=== PATIENT | female | born 1965 | race Caucasian/White ===

== ENCOUNTER → 2016-08-01 | Outpatient (CLI) | payer OTHER ==
[~2016-08-01] MED LIST: ADVAIR; EC NAPROSYN500 MG PO; EC-NAPROSYN500 MG PO; FLEXERIL 1010 MG/TAB PO; FLEXERIL5 MG PO; FLONASE NASAL S16 GM IH; MOTRIN 400400 MG/TAB PO; NEURONTIN300 MG/CAP PO; NORCO 325 MG-7.1 TAB PO; PEPCID 20MG TAB20 MG PO; PREDNISONE20 MG PO; PRILOSEC 20MG20 MG PO; PROAIR HFA0.09 MG/AC IH; QVAR0.04 MG/AC IH; ROXICODONE 55 MG/TAB PO; TUSS PO; [UNRECOGNIZED DRUG - REMARK]
== END ==
LOC: COL.RAD 11:12
DX: R14.0 Abdominal distension (gaseous) (principal)

== ENCOUNTER → 2016-09-03 | Outpatient (CLI) | payer OTHER | LOC: ZLAB.FHCC 11:56 | DX: Z01.89 Encounter for other specified special examinations (principal) ==

== ENCOUNTER → 2016-10-07 | Outpatient (CLI) | payer OTHER | LOC: COL.RAD 08:30 | DX: K75.81 Nonalcoholic steatohepatitis (NASH) (principal); R74.8 Abnormal levels of other serum enzymes; R18.8 Other ascites; R14.0 Abdominal distension (gaseous) | CPT/HCPCS: Q9967 ==

== ENCOUNTER → 2017-06-18 | Outpatient (CLI) | payer OTHER | LOC: COL.RAD 09:40 | DX: Z01.89 Encounter for other specified special examinations (principal) ==

== ENCOUNTER → 2017-07-03 | Outpatient (CLI) | payer OTHER | LOC: COL.RAD 10:02 | DX: Z02.71 Encounter for disability determination (principal); M51.36 Other intervertebral disc degeneration, lumbar region; M25.561 Pain in right knee ==

== ENCOUNTER → 2017-10-29 | Outpatient (CLI) | payer OTHER | LOC: COL.PUL 12:40 | DX: Z02.71 Encounter for disability determination (principal); J98.4 Other disorders of lung ==

== ENCOUNTER → 2017-11-14 | Outpatient (CLI) | payer OTHER | LOC: COL.RAD 09:25 | DX: Z02.71 Encounter for disability determination (principal); R22.31 Localized swelling, mass and lump, right upper limb; Z96.698 Presence of other orthopedic joint implants ==

== ENCOUNTER 2018-03-26 15:08 | Emergency (ER) | payer SELFPAY ==
[~2018-03-26] VITALS: Ht 172.7 cm; Wt 53.6 kg
[~2018-03-26 15:08] MED LIST changes: +NORCO 325 MG-51 TAB PO
[2018-03-26 15:20] VITALS: TEMP 99.2
[2018-03-26 16:10] VITALS: BP 126/78; PULSE 94
== END 2018-03-26 16:10 | disposition home or self-care (01) ==
LOC: COL.ER 15:08
DX: S02.2XXA Fracture of nasal bones, initial encounter for closed fracture (principal); S00.83XA Contusion of other part of head, initial encounter; W19.XXXA Unspecified fall, initial encounter

== ENCOUNTER 2018-04-01 11:01 | Emergency (ER) | payer SELFPAY ==
[~2018-04-01] VITALS: Ht 172.7 cm; Wt 53.6 kg
[2018-04-01 11:05] VITALS: BP 137/77; PULSE 105; TEMP 98.5
== END 2018-04-01 11:30 | disposition home or self-care (01) ==
LOC: COL.ER 11:01
DX: S00.83XD Contusion of other part of head, subsequent encounter (principal); H53.8 Other visual disturbances; S02.2XXD Fracture of nasal bones, subsequent encounter for fracture with routine healing; Z79.891 Long term (current) use of opiate analgesic; W18.30XD Fall on same level, unspecified, subsequent encounter

== ENCOUNTER 2018-06-21 19:21 | Emergency (ER) | payer SELFPAY ==
[~2018-06-21] VITALS: Ht 172.7 cm; Wt 50.0 kg
[2018-06-21 19:27] VITALS: TEMP 97.1
[2018-06-21] MEDS ORDERED: RT ADVAIR 228 DISKUS (19:38)
[2018-06-21 19:40] LABS: BASO # 0.1 (0.0-0.2); BASO % 0.8 % (0.0-2.0); EOS # 0.1 (0.0-0.7); EOS % 1.8 % (0-4.0); GRAN # 3.9 (1.4-6.5); GRAN % 49.9 % (42.2-75.2); HEMATOCRIT 39.8 % (37.0-47.0); HEMOGLOBIN 14.4 g/dl (12.5-16.0); LYMPH # 3.1 (1.2-3.4); LYMPH % 39.8 % (20.0-51.0); MEAN CELL VOLUME 91 fl (80.0-100.0); MEAN CORPUSCULAR HEMOGLOBIN 33 pg (27.0-31.0); MEAN CORPUSCULAR HGB CONC 36 g/dl (33.0-37.0); MEAN PLATELET VOLUME 9.3 fl (7.4-10.4); MONO # 0.6 (0.1-0.6); MONO % 7.4 % (1.7-9.3); PLATELET COUNT 170 K/mm3 (130-400); REDCELL DISTRIBUTION WIDTH-CV 13.2 % (11.5-14.5)
[2018-06-21] MEDS ORDERED: TRILEPTAL 300M300 MG PO (19:40)
[2018-06-21] MEDS ORDERED: PRINIVIL10 MG PO (19:40)
[2018-06-21 19:49] LABS: INR 0.9 (0.8-3.0); PROTHROMBIN TIME 10.1 SECONDS (9.7-12.8)
[2018-06-21 19:54] LABS: ALANINE AMINOTRANSFERASE 64 U/L (9-52); ALBUMIN 4.1 gm/dL (3.5-5.0); ALKALINE PHOSPHATASE 95 U/L (50-136); ANION GAP 9 mmol/L (7-16); AST,SGOT 127 U/L (15-37); BILIRUBIN,TOTAL 0.4 mg/dL (0.0-1.0); BLOOD UREA NITROGEN 7 mg/dL (7-17); CARBON DIOXIDE 24 mmol/L (22-30); CHLORIDE 108 mmol/L (98-107); CREATININE, serum 0.84 mg/dL (0.52-1.25); GLUCOSE 98 mg/dL (74-106); POTASSIUM 3.9 mmol/L (3.4-5.0); SODIUM 142 mmol/L (137-145); TOTAL PROTEIN 7.5 gm/dL (6.4-8.2)
[2018-06-21 20:11] LABS: TROPONIN-I < 0.012 ng/mL (0.000-0.034)
[2018-06-21 23:00] VITALS: BP 115/87; PULSE 84
== END 2018-06-21 23:25 | disposition home or self-care (01) ==
LOC: COL.ER 19:21
PROVIDERS: Emergency Medicine
DX: R07.89 Other chest pain (principal); I10 Essential (primary) hypertension; I25.10 Atherosclerotic heart disease of native coronary artery without angina pectoris; J44.9 Chronic obstructive pulmonary disease, unspecified; F17.210 Nicotine dependence, cigarettes, uncomplicated; Z98.890 Other specified postprocedural states; Z86.73 Personal history of transient ischemic attack (TIA), and cerebral infarction without residual deficits
CPT/HCPCS: J3010

== ENCOUNTER 2018-08-12 16:22 | Emergency (ER) | payer OTHER ==
[~2018-08-12] VITALS: Ht 172.7 cm; Wt 50.0 kg
[~2018-08-12 16:22] MED LIST changes: +ALDACTONE 25MG25 M1 PO; +ASPIRIN 81M81 MG/TA2 PO; +COREG 3.123.125 MG/T PO; +LIPITOR 40MG TA40 MG PO; +NORVASC 5MG5 MG/TAB PO; +PRINIVIL10 MG PO; +RT ADVAIR 228 DISKUS; +TOPAMAX50 MG PO; +TRILEPTAL 300M300 MG PO; +VASOTEC 2.2.5 MG/TAB PO
[2018-08-12 16:24] VITALS: TEMP 97.4
[2018-08-12 16:45] LABS: BASO # 0.1 (0.0-0.2); BASO % 1.4 % (0.0-2.0); EOS # 0.1 (0.0-0.7); EOS % 2.2 % (0-4.0); GRAN # 2.9 (1.4-6.5); GRAN % 57.9 % (42.2-75.2); HEMATOCRIT 36.1 % (37.0-47.0); HEMOGLOBIN 12.9 g/dl (12.5-16.0); LYMPH # 1.5 (1.2-3.4); LYMPH % 30.2 % (20.0-51.0); MEAN CELL VOLUME 93 fl (80.0-100.0); MEAN CORPUSCULAR HEMOGLOBIN 33 pg (27.0-31.0); MEAN CORPUSCULAR HGB CONC 36 g/dl (33.0-37.0); MEAN PLATELET VOLUME 9.2 fl (7.4-10.4); MONO # 0.4 (0.1-0.6); MONO % 8.1 % (1.7-9.3); PLATELET COUNT 139 K/mm3 (130-400); RED BLOOD COUNT 3.89 M/mm3 (4.10-5.30); REDCELL DISTRIBUTION WIDTH-CV 14.9 % (11.5-14.5)
[2018-08-12 17:00] LABS: ALANINE AMINOTRANSFERASE 180 U/L (9-52); ALBUMIN 4.1 gm/dL (3.5-5.0); ALCOHOL(ethanol),MEDICAL 278 mg/dL; ALKALINE PHOSPHATASE 94 U/L (50-136); ANION GAP 11 mmol/L (7-16); AST,SGOT 536 U/L (15-37); BILIRUBIN,TOTAL 0.3 mg/dL (0.0-1.0); BLOOD UREA NITROGEN 17 mg/dL (7-17); CALCIUM 8.8 mg/dL (8.4-10.2); CARBON DIOXIDE 22 mmol/L (22-30); CHLORIDE 111 mmol/L (98-107); CREATININE, serum 0.71 mg/dL (0.52-1.25); GLUCOSE 90 mg/dL (74-106); LIPASE 396 U/L (23-300); MAGNESIUM 1.7 mg/dL (1.6-2.3); PHOSPHOROUS 5.2 mg/dL (2.5-4.5); POTASSIUM 4.1 mmol/L (3.4-5.0); SODIUM 143 mmol/L (137-145); TOTAL PROTEIN 7.2 gm/dL (6.4-8.2)
[2018-08-12 17:03] LABS: C-REACTIVE PROTEIN < 0.5 mg/dL (0.0-0.9)
[2018-08-12 17:12] LABS: TROPONIN-I < 0.012 ng/mL (0.000-0.035)
[2018-08-12 19:05] VITALS: BP 103/76; PULSE 105
== END 2018-08-12 19:05 | disposition home or self-care (01) ==
LOC: COL.ER 16:22
PROVIDERS: Emergency Medicine
DX: S00.83XA Contusion of other part of head, initial encounter (principal); R07.89 Other chest pain; F10.129 Alcohol abuse with intoxication, unspecified; R91.1 Solitary pulmonary nodule; F17.210 Nicotine dependence, cigarettes, uncomplicated; G40.909 Epilepsy, unspecified, not intractable, without status epilepticus; I10 Essential (primary) hypertension; Z95.5 Presence of coronary angioplasty implant and graft; W19.XXXA Unspecified fall, initial encounter; Y90.8 Blood alcohol level of 240 mg/100 ml or more; Z79.51 Long term (current) use of inhaled steroids; Z79.82 Long term (current) use of aspirin
CPT/HCPCS: J2060; Q9967

== ENCOUNTER 2018-09-28 10:13 | Emergency (ER) | payer OTHER ==
[~2018-09-28] VITALS: Ht 172.7 cm; Wt 47.4 kg
[2018-09-28 10:21] VITALS: TEMP 97.7
[2018-09-28] MEDS ORDERED: FLEXERIL 1010 MG/TAB PO (10:38)
[2018-09-28 10:51] LABS: HEMATOCRIT 39.9 % (37.0-47.0); HEMOGLOBIN 14.2 g/dl (12.5-16.0); MEAN CELL VOLUME 94 fl (80.0-100.0); MEAN CORPUSCULAR HEMOGLOBIN 34 pg (27.0-31.0); MEAN CORPUSCULAR HGB CONC 36 g/dl (33.0-37.0); MEAN PLATELET VOLUME 9.9 fl (7.4-10.4); PLATELET COUNT 175 K/mm3 (130-400); RED BLOOD COUNT 4.24 M/mm3 (4.10-5.30); REDCELL DISTRIBUTION WIDTH-CV 14.3 % (11.5-14.5)
[2018-09-28] MEDS ORDERED: NORVASC 5MG5 MG/TAB PO (10:51)
[2018-09-28 10:59] LABS: BLOOD UREA NITROGEN 13 mg/dL (7-17); CREATININE, serum 0.76 mg/dL (0.52-1.25); GLUCOSE 128 mg/dL (74-106)
[2018-09-28 11:00] LABS: ALANINE AMINOTRANSFERASE 34 U/L (9-52); ALBUMIN 4.1 gm/dL (3.5-5.0); ALKALINE PHOSPHATASE 92 U/L (50-136); ANION GAP 12 mmol/L (7-16); AST,SGOT 102 U/L (15-37); BILIRUBIN,TOTAL 0.4 mg/dL (0.0-1.0); CALCIUM 8.9 mg/dL (8.4-10.2); CARBON DIOXIDE 25 mmol/L (22-30); CHLORIDE 101 mmol/L (98-107); CREATINE KINASE 56 U/L (30-135); POTASSIUM 3.7 mmol/L (3.4-5.0); SODIUM 138 mmol/L (137-145); TOTAL PROTEIN 7.5 gm/dL (6.4-8.2)
[2018-09-28 11:01] LABS: INR 0.9 (0.8-3.0)
[2018-09-28 11:05] LABS: BAND 3 % (0-10); EOSINOPHIL 4 % (0-4); LYMPHOCYTE 31 % (20.0-51.0); NEUTROPHILS 60 % (42.0-75.2); PLATELET ESTIMATE NORMAL (NORMAL); TARGET CELLS 1+
[2018-09-28 11:23] LABS: TROPONIN-I < 0.012 ng/mL (0.000-0.035)
[2018-09-28 12:55] VITALS: BP 112/73; PULSE 86
== END 2018-09-28 12:56 | disposition home or self-care (01) ==
LOC: COL.ER 10:13
PROVIDERS: Emergency Medicine
DX: R51 Headache (principal); J44.9 Chronic obstructive pulmonary disease, unspecified; F17.210 Nicotine dependence, cigarettes, uncomplicated; Z86.73 Personal history of transient ischemic attack (TIA), and cerebral infarction without residual deficits; Z79.51 Long term (current) use of inhaled steroids
CPT/HCPCS: J1200; J2765; J7030

== ENCOUNTER 2018-10-06 21:17 | Emergency (ER) | payer OTHER ==
[~2018-10-06] VITALS: Ht 172.7 cm; Wt 50.0 kg
[2018-10-06 21:21] VITALS: TEMP 98
[2018-10-06 22:25] LABS: BASO # 0.1 (0.0-0.2); BASO % 0.9 % (0.0-2.0); EOS # 0.1 (0.0-0.7); EOS % 0.9 % (0-4.0); GRAN % 62.9 % (42.2-75.2); HEMOGLOBIN 11.1 g/dl (12.5-16.0); LYMPH # 1.7 (1.2-3.4); LYMPH % 27.3 % (20.0-51.0); MEAN CELL VOLUME 94 fl (80.0-100.0); MEAN CORPUSCULAR HEMOGLOBIN 34 pg (27.0-31.0); MEAN CORPUSCULAR HGB CONC 36 g/dl (33.0-37.0); MONO # 0.5 (0.1-0.6); MONO % 7.7 % (1.7-9.3); PLATELET COUNT 155 K/mm3 (130-400); RED BLOOD COUNT 3.29 M/mm3 (4.10-5.30); REDCELL DISTRIBUTION WIDTH-CV 14.1 % (11.5-14.5)
[2018-10-06 22:30] LABS: INR 0.9 (0.8-3.0); PROTHROMBIN TIME 10.2 SECONDS (9.7-12.8)
[2018-10-06 22:33] LABS: PARTIAL THROMBOPLASTIN TIME 28.5 SECONDS (26.0-37.0)
[2018-10-06 22:36] LABS: ALANINE AMINOTRANSFERASE 52 U/L (9-52); ALBUMIN 3.1 gm/dL (3.5-5.0); ALKALINE PHOSPHATASE 84 U/L (50-136); ANION GAP 14 mmol/L (7-16); AST,SGOT 125 U/L (15-37); BILIRUBIN,TOTAL 0.2 mg/dL (0.0-1.0); BLOOD UREA NITROGEN 20 mg/dL (7-17); CALCIUM 7.4 mg/dL (8.4-10.2); CHLORIDE 108 mmol/L (98-107); CREATININE, serum 0.87 mg/dL (0.52-1.25); GLUCOSE 66 mg/dL (74-106); SODIUM 135 mmol/L (137-145); TOTAL PROTEIN 5.8 gm/dL (6.4-8.2)
[2018-10-06 22:50] LABS: CARBON DIOXIDE 14 mmol/L (22-30); TROPONIN-I < 0.012 ng/mL (0.000-0.035)
[2018-10-06 23:56] VITALS: BP 119/74; PULSE 86
== END 2018-10-07 00:11 | disposition home or self-care (01) ==
LOC: COL.ER 21:17
PROVIDERS: Family Medicine
DX: R07.89 Other chest pain (principal)
CPT/HCPCS: J1885; J7030; Q9967

== ENCOUNTER → 2018-12-01 | Outpatient (CLI) | payer OTHER | LOC: COL.RAD 11:16 | DX: J43.9 Emphysema, unspecified (principal); F17.210 Nicotine dependence, cigarettes, uncomplicated; J98.4 Other disorders of lung; K76.0 Fatty (change of) liver, not elsewhere classified; J98.11 Atelectasis | CPT/HCPCS: Q9967 ==

== ENCOUNTER 2018-12-12 16:37 | Emergency (ER) | payer OTHER ==
[~2018-12-12] VITALS: Ht 172.7 cm; Wt 45.9 kg
[2018-12-12 16:43] VITALS: TEMP 97.6
[2018-12-12 17:23] LABS: BASO # 0.1 (0.0-0.2); BASO % 1.2 % (0.0-2.0); EOS # 0.2 (0.0-0.7); EOS % 3.1 % (0-4.0); GRAN # 3.4 (1.4-6.5); GRAN % 66.2 % (42.2-75.2); HEMOGLOBIN 12.2 g/dl (12.5-16.0); LYMPH # 1.1 (1.2-3.4); MEAN CELL VOLUME 95 fl (80.0-100.0); MEAN CORPUSCULAR HEMOGLOBIN 35 pg (27.0-31.0); MEAN CORPUSCULAR HGB CONC 37 g/dl (33.0-37.0); MEAN PLATELET VOLUME 9.9 fl (7.4-10.4); MONO # 0.4 (0.1-0.6); MONO % 6.9 % (1.7-9.3); PLATELET COUNT 120 K/mm3 (130-400); RED BLOOD COUNT 3.49 M/mm3 (4.10-5.30); REDCELL DISTRIBUTION WIDTH-CV 16.2 % (11.5-14.5)
[2018-12-12 17:32] LABS: HEMATOCRIT 33.1 % (37.0-47.0)
[2018-12-12 17:33] LABS: ALBUMIN 3.6 gm/dL (3.5-5.0); BILIRUBIN,TOTAL 0.9 mg/dL (0.0-1.0); CALCIUM 8.3 mg/dL (8.4-10.2); CREATININE, serum 0.79 (0.52-1.25); POTASSIUM 3.9 mmol/L (3.4-5.0); TOTAL PROTEIN 6.8 gm/dL (6.4-8.2)
[2018-12-12 17:49] LABS: PROLACTIN 47.3 ng/mL (3.0-18.6)
[2018-12-12 18:27] LABS: COLLECTION METHOD CLEAN CATCH
[2018-12-12 18:33] LABS: MUCOUS Present /lpf; PH 6 (5-8); SQUAMOUS EPITHELIAL 0-2 /hpf; URINE APPEARANCE Clear; URINE BACTERIA None Seen /hpf; URINE BILIRUBIN Negative (NEGATIVE); URINE BLOOD Negative (NEGATIVE); URINE COLOR Yellow; URINE GLUCOSE Negative (NEGATIVE); URINE KETONE Negative (NEGATIVE); URINE LEUKOCYTE ESTERASE Negative (NEGATIVE); URINE NITRATE Negative (NEGATIVE); URINE PROTEIN(semi-quant) Negative (NEGATIVE); URINE RBC 0-2 /hpf; URINE UROBILINOGEN Negative (NEGATIVE)
[2018-12-12] MEDS ORDERED: VASOTEC 2.2.5 MG/TAB PO (19:00)
[2018-12-12 19:17] LABS: INR 0.9 (0.8-3.0); PROTHROMBIN TIME 10.6 SECONDS (9.7-12.8)
[2018-12-12] MEDS ORDERED: NORCO 325 MG-51 TAB PO (19:37)
[2018-12-12] MEDS ORDERED: TOPAMAX 25MG25 M1 PO (19:38)
[2018-12-12 20:22] VITALS: BP 128/93; PULSE 87
== END 2018-12-12 20:24 | disposition home or self-care (01) ==
LOC: COL.ER 16:37
PROVIDERS: Emergency Medicine
DX: S52.501A Unspecified fracture of the lower end of right radius, initial encounter for closed fracture (principal); G40.909 Epilepsy, unspecified, not intractable, without status epilepticus; G43.909 Migraine, unspecified, not intractable, without status migrainosus; F17.210 Nicotine dependence, cigarettes, uncomplicated; I50.9 Heart failure, unspecified; I10 Essential (primary) hypertension; F10.129 Alcohol abuse with intoxication, unspecified; Y90.8 Blood alcohol level of 240 mg/100 ml or more; Z98.890 Other specified postprocedural states; Z86.73 Personal history of transient ischemic attack (TIA), and cerebral infarction without residual deficits; W19.XXXA Unspecified fall, initial encounter
CPT/HCPCS: J0780; J1200; J7030; Q4050

== ENCOUNTER 2019-03-12 12:33 | Emergency (ER) | payer SELFPAY ==
[~2019-03-12] VITALS: Ht 172.7 cm; Wt 50.0 kg
[~2019-03-12 12:33] MED LIST changes: +TOPAMAX 25MG25 M1 PO
[2019-03-12 13:01] VITALS: TEMP 98.3
[2019-03-12] MEDS ORDERED: PREDNISONE20 MG PO (14:58)
[2019-03-12] MEDS ORDERED: COZAAR 25MG25 MG/TAB PO (14:58)
[2019-03-12 15:16] VITALS: BP 148/97; PULSE 86
== END 2019-03-12 15:17 | disposition home or self-care (01) ==
LOC: COL.ER 12:33
DX: T78.3XXA Angioneurotic edema, initial encounter (principal); I10 Essential (primary) hypertension; I25.10 Atherosclerotic heart disease of native coronary artery without angina pectoris; J45.909 Unspecified asthma, uncomplicated; G40.909 Epilepsy, unspecified, not intractable, without status epilepticus; F17.210 Nicotine dependence, cigarettes, uncomplicated
CPT/HCPCS: J7512

== ENCOUNTER 2019-03-26 17:10 | Emergency (ER) | payer SELFPAY ==
[~2019-03-26] VITALS: Ht 172.7 cm; Wt 50.0 kg
[~2019-03-26 17:10] MED LIST changes: +COZAAR 25MG25 MG/TAB PO
[2019-03-26 17:13] VITALS: BP 164/107; PULSE 87; TEMP 97.4
[2019-03-26 18:25] LABS: BASO # 0.1 (0.0-0.2); BASO % 1.1 % (0.0-2.0); EOS # 0.1 (0.0-0.7); EOS % 2.5 % (0-4.0); GRAN # 3.1 (1.4-6.5); GRAN % 55.5 % (42.2-75.2); HEMOGLOBIN 12.5 g/dl (12.5-16.0); LYMPH # 1.8 (1.2-3.4); LYMPH % 31.1 % (20.0-51.0); MEAN CELL VOLUME 95 fl (80.0-100.0); MEAN CORPUSCULAR HEMOGLOBIN 34 pg (27.0-31.0); MEAN CORPUSCULAR HGB CONC 36 g/dl (33.0-37.0); MEAN PLATELET VOLUME 9.9 fl (7.4-10.4); MONO # 0.5 (0.1-0.6); MONO % 9.4 % (1.7-9.3); PLATELET COUNT 142 K/mm3 (130-400); RED BLOOD COUNT 3.66 M/mm3 (4.10-5.30); REDCELL DISTRIBUTION WIDTH-CV 14.6 % (11.5-14.5)
[2019-03-26 18:29] LABS: HEMATOCRIT 34.7 % (37.0-47.0)
[2019-03-26 18:31] LABS: ALANINE AMINOTRANSFERASE 55 U/L (9-52); ALBUMIN 3.8 gm/dL (3.5-5.0); ALKALINE PHOSPHATASE 88 U/L (50-136); ANION GAP 10 mmol/L (7-16); AST,SGOT 98 U/L (15-37); BILIRUBIN,TOTAL 0.3 mg/dL (0.0-1.0); BLOOD UREA NITROGEN 7 mg/dL (7-17); CALCIUM 8.7 mg/dL (8.4-10.2); CARBON DIOXIDE 24 mmol/L (22-30); CHLORIDE 109 mmol/L (98-107); GLUCOSE 80 mg/dL (74-106); LIPASE 193 U/L (23-300); POTASSIUM 3.3 mmol/L (3.4-5.0); SODIUM 143 mmol/L (137-145); TOTAL PROTEIN 6.9 gm/dL (6.4-8.2)
[2019-03-26 18:32] LABS: C-REACTIVE PROTEIN < 0.5 mg/dL (0.0-0.9)
[2019-03-26 18:53] LABS: TROPONIN-I < 0.012 ng/mL (0.000-0.035)
== END 2019-03-26 19:52 | disposition home or self-care (01) ==
LOC: COL.ER 17:10
PROVIDERS: Emergency Medicine
DX: R07.89 Other chest pain (principal); F17.210 Nicotine dependence, cigarettes, uncomplicated; I10 Essential (primary) hypertension; E78.5 Hyperlipidemia, unspecified

== ENCOUNTER 2019-04-30 21:01 | Emergency (ER) | payer SELFPAY ==
[~2019-04-30] VITALS: Ht 172.7 cm; Wt 50.0 kg
[2019-04-30 21:02] VITALS: TEMP 97.2
[2019-04-30 21:32] LABS: BASO # 0.1 (0.0-0.2); BASO % 0.9 % (0.0-2.0); EOS # 0.1 (0.0-0.7); EOS % 1.3 % (0-4.0); GRAN # 3.8 (1.4-6.5); GRAN % 55.3 % (42.2-75.2); HEMOGLOBIN 13.1 g/dl (12.5-16.0); LYMPH # 2.3 (1.2-3.4); LYMPH % 33.8 % (20.0-51.0); MEAN CELL VOLUME 94 fl (80.0-100.0); MEAN CORPUSCULAR HEMOGLOBIN 34 pg (27.0-31.0); MEAN CORPUSCULAR HGB CONC 36 g/dl (33.0-37.0); MEAN PLATELET VOLUME 9.7 fl (7.4-10.4); MONO # 0.6 (0.1-0.6); MONO % 8.3 % (1.7-9.3); PLATELET COUNT 153 K/mm3 (130-400); RED BLOOD COUNT 3.84 M/mm3 (4.10-5.30); REDCELL DISTRIBUTION WIDTH-CV 14.8 % (11.5-14.5)
[2019-04-30 21:33] LABS: HEMATOCRIT 36.1 % (37.0-47.0)
[2019-04-30 21:35] LABS: INR 0.9 (0.8-3.0); PROTHROMBIN TIME 10.6 SECONDS (9.7-12.8)
[2019-04-30 21:38] LABS: ALANINE AMINOTRANSFERASE 95 U/L (9-52); ALBUMIN 4.2 gm/dL (3.5-5.0); ALKALINE PHOSPHATASE 95 U/L (50-136); ANION GAP 13 mmol/L (7-16); AST,SGOT 236 U/L (15-37); BILIRUBIN,TOTAL 0.4 mg/dL (0.0-1.0); BLOOD UREA NITROGEN 7 mg/dL (7-17); CALCIUM 8.9 mg/dL (8.4-10.2); CARBON DIOXIDE 21 mmol/L (22-30); CHLORIDE 108 mmol/L (98-107); CREATININE, serum 0.59 (0.52-1.25); GLUCOSE 90 mg/dL (74-106); LIPASE 241 U/L (23-300); POTASSIUM 4.1 mmol/L (3.4-5.0); SODIUM 141 mmol/L (137-145); TOTAL PROTEIN 7.5 gm/dL (6.4-8.2)
[2019-04-30 21:52] LABS: TROPONIN-I < 0.012 ng/mL (0.000-0.035)
[2019-04-30] MEDS ORDERED: PHENERGAN 25 TA25 MG PO (23:16)
[2019-04-30] MEDS ORDERED: NEXIUM 20MG20 MG PO (23:16)
[2019-04-30 23:45] VITALS: BP 128/90; PULSE 89
== END 2019-04-30 23:45 | disposition home or self-care (01) ==
LOC: COL.ER 21:01
PROVIDERS: Emergency Medicine
DX: R10.13 Epigastric pain (principal); F17.210 Nicotine dependence, cigarettes, uncomplicated
CPT/HCPCS: C9113; J1170; J2405; J7030

== ENCOUNTER 2020-01-20 08:20 | Day surgery (SDC) | payer OTHER ==
[~2020-01-20] VITALS: Ht 172.7 cm; Wt 49.3 kg
[2020-01-20] VITALS (10 sets, daily range): BP systolic 117–147; BP diastolic 65–96; PULSE 90–104; TEMP 97.5–98.1
[~2020-01-20 08:20] MED LIST changes: +NEXIUM 20MG20 MG PO; +PHENERGAN 25 TA25 MG PO
[2020-01-20] MEDS ORDERED: NEURONTIN300 MG/CAP PO (08:31)
[2020-01-20] MEDS ORDERED: PRILOSEC 20MG20 MG PO (08:32)
[2020-01-20 08:57] LABS: BASO # 0.1 (0.0-0.2); EOS # 0.1 (0.0-0.7); EOS % 1.3 % (0-4.0); GRAN # 4.9 (1.4-6.5); GRAN % 78.2 % (42.2-75.2); HEMOGLOBIN 13.2 g/dl (12.5-16.0); LYMPH # 0.8 (1.2-3.4); LYMPH % 12.9 % (20.0-51.0); MEAN CELL VOLUME 90 fl (80.0-100.0); MEAN CORPUSCULAR HEMOGLOBIN 32 pg (27.0-31.0); MEAN CORPUSCULAR HGB CONC 36 g/dl (33.0-37.0); MEAN PLATELET VOLUME 9.6 fl (7.4-10.4); MONO # 0.4 (0.1-0.6); MONO % 6.1 % (1.7-9.3); PLATELET COUNT 128 K/mm3 (130-400); RED BLOOD COUNT 4.07 M/mm3 (4.10-5.30); REDCELL DISTRIBUTION WIDTH-CV 15.8 % (11.5-14.5)
[2020-01-20 08:58] LABS: HEMATOCRIT 36.7 % (37.0-47.0)
[2020-01-20 09:01] LABS: INR 0.9 (0.8-3.0); PROTHROMBIN TIME 10.4 SECONDS (9.7-12.8)
[2020-01-20 09:05] LABS: CALCIUM 9.5 mg/dL (8.4-10.2); CREATININE, serum 0.69 (0.52-1.25); POTASSIUM 3.9 mmol/L (3.4-5.0)
[2020-01-20] MEDS ORDERED: LIPITOR 40MG TA40 MG PO (09:19)
[2020-01-20] MEDS ORDERED: ALDACTONE 25MG25 M1 PO (09:20)
[2020-01-20] MEDS ORDERED: COZAAR 25MG25 MG/TAB PO (09:21)
--- NOTE | 2020-01-20 10:22 | NUR ---
Pt to procedure,report to Sunil hansen.
--- NOTE | 2020-01-20 10:40 | NUR ---
SEE MERGE FOR MEDICATION ADMINISTRATION TIMES AND INTRA AND POST SEDATION ASSESSMENTS.
--- NOTE | 2020-01-20 12:09 | NUR ---
bedside report to report to karoline whittington. pt is alert and oriented. hemostasis noted and the site is c/d/i. arm sling in place and pt reminded not to life left arm above her head. karoline whittington placing an ice pack to the site per dr. jimenez's orders. pt has no other questions or conerns at this time.
--- NOTE | 2020-01-20 12:15 | NUR ---
PATIENT IN ROOM FROM PRESS READER. AWAKE/ALERT. ORIENTED X 4. ATTITUDE CALM AND PLEASANT. LEFT CHEST ICD INSCIONS SITE DRESSING CDI NO ECCHYMOSIS/HEMATOMA NOTED. REPORTING MODERATE PAIN TO SITE. ICE PACK PLACED ORDERED. SEE FLOW SHEET FOR VS DOCUMENTED. SIDE FRAMER IN PLACE AND MONITORING.
--- NOTE | 2020-01-20 13:00 | NUR ---
PATIENT UP TO BATHROOM WITH STAND BY ASSIT. AMBULATED WITH STEADY GAIT. LEFT ARM IN SLING ORDERED. BACK TO BED WITH NO COMPLAINTS/CONCERNS. LEFT CHEST ICD INCSION SITE WNL. DRESSING CDI. AREA SOFT. tENDER TO PALPATION. iCE IN PLACE ORDERED. CALL LIGHT WITHIN REACH.
--- NOTE | 2020-01-20 13:30 | NUR ---
1330: PATIENT CALLED NURSE INTO ROOM COMPLAINING OF INCREASED PAIN ON LEFT PACEMAKER ICD PLACEMENT SITE. UPON OBSERVATION BRIGHT RED BLLOD NOTED ON DRESSING. HEMATOMA NOTED EXTENDING FROM THE DRESSING. 1334: cALL TO STAFFING BRANCH MANAGER. VERBALIZATION FROM STAFFING BRANCH MANAGER RN THAT THEY ARE ON ENROUTE TO THE FLOOR. 1338: PAGE TO FRANKLIN BROWN WITH DR FERNANDEZ. 1340: CALL BACK FROM FRANKLIN BROWN. NOTIFIED OF ABOVE DOCUMENTATION TO PLACE A PRESSURE DRESSING AND WILL CALL BACK AFTER TALKING WITH DR FERNANDEZ. DIRECT MANUAL PRESSURE INITIATED @ 1335. HEMATOMA OUTLINED WITH MARKER. 1358: CALL BACK TO STAFFING BRANCH MANAGER. 1408: STAFFING BRANCH MANAGER RNS IN ROOM. ORDERS RECEIVED FROM FRANKLIN BROWN/DR FERNANDEZ FOR FENTANYL FOR PAIN. SEE EMAR FOR FENTANYL 50MCG GIVEN TO 2 DOSES. 1427: FEM STOP PRESSURE DEVICE PLACED BY STAFFING BRANCH MANAGER RN WITH 20ML OF AIR. DRESSING CHANGED TO INSCION SITE BY STAFFING BRANCH MANAGER RN IN STERILE FASHION. 1435: DRESSING CDI. 1445: DRESSING CDI. ICE PACK IN PLACE. LEFT ARM IN SLING.
[2020-01-20] MEDS ORDERED: CEPHALEXIN500 M1 PO (14:54)
[2020-01-20] MEDS ORDERED: LANOXIN 0.25M0.25 MG PO (14:55)
--- NOTE | 2020-01-20 19:40 | NUR ---
1830: LEFT ICD DRESSING WITH VISIBLE BLOODY DRAINAGE, SMALL AMOUNT. SAFE GUARD DEVICE STILL IN PLACE. PATIENT CONTINUES TO C/O PAIN TO SITE. HEMATOMA WITH NO CHANGE. CALL TO DR. FERNANDEZ. COMMUNICATION TO RE ENFORCE INCISION DRESSING. HYDROCODONE CHANGED TO 5/325 1 TAB Q4H PRN. SITE ASSESSED AND BED SIDE REPORT GIVEN TO HEALTH ADMINISTRATION TEACHER RN. ALL QUESTIONS ADDRESSED DURING REPORT.
--- NOTE | 2020-01-20 20:10 | NUR ---
Shift report received from YESY Jauregui. At time of assessment, patient is awake in bed. She complains of pain 9/10 in pacemaker insertion site which is covered with occulissive dressing. In addition, a safeguard and pressure dressing are applied to minimize hematoma. Minimal drainage appears on dressing at this time. Patient is alert and oriented, heart sounds regular/normal, lung sounds clear, no edema present. Will continue to monitor pain and bleeding.
[2020-01-21 00:26] VITALS: BP 126/88; PULSE 75; TEMP 97.2
[2020-01-21 03:47] VITALS: BP 116/80; PULSE 78; TEMP 97.4
--- NOTE | 2020-01-21 04:47 | NUR ---
Patient has gotten minimal rest throughout the night due to pain in pacemaker insertion site. She is currently sleeping and has been for the past couple hours. Pressure dressing and safeguard have remained in use and no increased bleeding/swelling from the hematoma has occurred.
[2020-01-21 06:40] LABS: BASO # 0.1 (0.0-0.2); EOS # 0.1 (0.0-0.7); EOS % 2.5 % (0-4.0); GRAN # 3.5 (1.4-6.5); GRAN % 68.3 % (42.2-75.2); HEMOGLOBIN 11.3 g/dl (12.5-16.0); LYMPH # 1.1 (1.2-3.4); LYMPH % 21.4 % (20.0-51.0); MEAN CELL VOLUME 93 fl (80.0-100.0); MEAN CORPUSCULAR HEMOGLOBIN 33 pg (27.0-31.0); MEAN CORPUSCULAR HGB CONC 35 g/dl (33.0-37.0); MEAN PLATELET VOLUME 10.1 fl (7.4-10.4); MONO # 0.3 (0.1-0.6); MONO % 6.6 % (1.7-9.3); PLATELET COUNT 87 K/mm3 (130-400); RED BLOOD COUNT 3.45 M/mm3 (4.10-5.30); REDCELL DISTRIBUTION WIDTH-CV 15.9 % (11.5-14.5)
[2020-01-21 06:48] LABS: HEMATOCRIT 31.9 % (37.0-47.0)
[2020-01-21 06:54] LABS: CALCIUM 8.6 mg/dL (8.4-10.2); CREATININE, serum 0.72 (0.52-1.25); MAGNESIUM 1.2 mg/dL (1.6-2.3); POTASSIUM 3.7 mmol/L (3.4-5.0)
[2020-01-21 08:17] VITALS: BP 134/80; PULSE 82; TEMP 97.7
[2020-01-21] MEDS ORDERED: NORCO 325 MG-51 TAB PO (10:43)
[2020-01-21 11:30] VITALS: BP 110/67; PULSE 80; TEMP 98
--- NOTE | 2020-01-21 11:33 | NUR ---
First visit from the abatement worker. No needs right now.
--- NOTE | 2020-01-21 13:19 | NUR ---
EDUIN met with the patient to discuss discharge plan. The patient lives in [place] with her boyfriend, Hoang Lopez (ph#[phone]). She reports independence with ADLs and does not have any DME. The patient receives primary care at the [facility] in [place] and she receives her medications at [facility]. She reports that she has occasional difficulties affording her meds and that she has utilized [employer] in the past to help with this. She states that her boyfriend also helps her pay for her meds. The patient is self pay. Financial Counselor, Liz, was consulted and completed a Medicaid application with the patient. EDUIN presented the Releases of Information for the Medicaid damon to the patient. The patient verbalized understanding and signed forms. EDUIN emailed the signed forms back to Financial Counseling. The patient plans to return back home with her boyfriend today, 01/20. No additional needs at this time.
--- NOTE | 2020-01-21 16:13 | NUR ---
PATIENT DC TO HOME @ 1345 ACCOMPANIED BY FAMILY CRANE CHASER. AT TIME OF DC PATIENT AWAKE AND ALERT. DOES CONTINUE TO HAVE PAIN IN LEFT CHEST INCISION SITE. NOT REQUIRING INTERVENTION AT THIS TIME. PRINTED DC INSTRUCTIONS TO INCLUDE WOUND CARE, MEDICATIONS, AND FOLLOW UP. PATIENT ACKNOWLEDGES UNDERSTANDING OF INSTRUCTIONS AND ALL QUESTIONS AND CONCERNS ADDRESSED DURING REVIEW. AMBULATED OFF UNIT ACCOMPANIED BY PCT. VOICED APPRECIATION FOR CARE PROVIDED.
== END 2020-01-21 13:45 | disposition home or self-care (01) ==
LOC: COL.CAR 08:20 → MEDICAL 08:20 → COL.CAR 08:30 → MEDICAL 12:21 → COL.CAR 01-21 13:45
PROVIDERS: Internal Medicine Cardiovascular Disease
DX: I42.0 Dilated cardiomyopathy (principal); I11.0 Hypertensive heart disease with heart failure; I50.32 Chronic diastolic (congestive) heart failure; I25.2 Old myocardial infarction; Z86.73 Personal history of transient ischemic attack (TIA), and cerebral infarction without residual deficits; G40.909 Epilepsy, unspecified, not intractable, without status epilepticus; M19.90 Unspecified osteoarthritis, unspecified site; G62.9 Polyneuropathy, unspecified; D64.9 Anemia, unspecified; Z79.82 Long term (current) use of aspirin; Z87.891 Personal history of nicotine dependence
CPT/HCPCS: OP; C1721; C1777; C1894; C1898; J0690; J1160; J2250; J3010; Q9967

== ENCOUNTER 2021-08-14 05:42 | Day surgery (SDC) | payer SELFPAY ==
[~2021-08-14] VITALS: Ht 172.7 cm; Wt 55.0 kg
[2021-08-14] VITALS (7 sets, daily range): BP systolic 87–110; BP diastolic 52–65; PULSE 80–88; TEMP 97.6–98
[~2021-08-14 05:42] MED LIST changes: +CEPHALEXIN500 M1 PO; +LANOXIN 0.25M0.25 MG PO
--- NOTE | 2021-08-14 08:20 | NUR ---
RECEIVED PT FROM OR PACU, YESY MEDINA. VS OBTAINED. ORIENTED PT TO CALL LIGHT AND ROOM. VERBALIZED UNDERSTANDING. WILL CONTINUE TO MONITOR PT.
--- NOTE | 2021-08-14 08:43 | NUR ---
PT RESTING COMFORTABLY IN BED. TOLERATING PO WITHOUT DIFFICULTY. WILL CONTINUE TO MONITOR. VSS.
--- NOTE | 2021-08-14 08:50 | NUR ---
PT RESTING COMFORTABLY IN ROOM. TOLERATING PO WITHOUT DIFFICULTY. WILL CONTINUE TO MONITOR PT. DENIES ANY NEEDS AT THIS TIME.
--- NOTE | 2021-08-14 09:05 | NUR ---
PT CONTINUES TO REST COMFORTABLY IN ROOM. DENIES ANY NEEDS AT THIS TIME. WILL CONTINUE TO MONITOR.
--- NOTE | 2021-08-14 09:20 | NUR ---
PT CONTINUES TO DENY ANY NEEDS AT THIS TIME. INFORMED PT I AM PREPARING HER FOR DC. VERBALIZED UNDERSTANDING.
--- NOTE | 2021-08-14 09:35 | NUR ---
PT PREPARING FOR DISCHARGE. DENIES ANY NEEDS AT THIS TIME.
--- NOTE | 2021-08-14 10:10 | NUR ---
DISCHARGE EDUCATION COMPLETED WITH PT. VERBALIZED UNDERSTANDING OF HOME AND FOLLOW UP CARE. ALL QUESTIONS ANSWERED. DISCHARGE CRITERIA MET. DISCHARGE PAPERWORK GIVEN TO PT.
== END 2021-08-14 10:58 ==
LOC: SDCO 05:42
DX: S82.842A Displaced bimalleolar fracture of left lower leg, initial encounter for closed fracture (principal); I25.10 Atherosclerotic heart disease of native coronary artery without angina pectoris; I11.0 Hypertensive heart disease with heart failure; I50.9 Heart failure, unspecified; I48.91 Unspecified atrial fibrillation; E78.5 Hyperlipidemia, unspecified; F17.210 Nicotine dependence, cigarettes, uncomplicated; J44.9 Chronic obstructive pulmonary disease, unspecified; K21.9 Gastro-esophageal reflux disease without esophagitis; M19.90 Unspecified osteoarthritis, unspecified site; F32.A Depression, unspecified; F41.9 Anxiety disorder, unspecified; D64.9 Anemia, unspecified; F43.10 Post-traumatic stress disorder, unspecified; G43.909 Migraine, unspecified, not intractable, without status migrainosus; Z79.899 Other long term (current) drug therapy; Z79.82 Long term (current) use of aspirin; Z79.891 Long term (current) use of opiate analgesic; Z86.73 Personal history of transient ischemic attack (TIA), and cerebral infarction without residual deficits
CPT/HCPCS: C1713; J0690; J2250; J2405; J2795; J3010; J7120

== ENCOUNTER 2022-09-12 07:08 | Day surgery (SDC) | payer MEDICAID ==
[~2022-09-12] VITALS: Ht 172.7 cm; Wt 52.3 kg
[2022-09-12 07:54] VITALS: BP 125/90; PULSE 124; TEMP 98.6
[2022-09-12 08:11] LABS: HEMOGLOBIN 10.6 g/dl (12.5-16.0); MEAN CELL VOLUME 92 fl (80.0-100.0); MEAN CORPUSCULAR HEMOGLOBIN 30 pg (27-31); MEAN CORPUSCULAR HGB CONC 33 g/dl (33.0-37.0); MEAN PLATELET VOLUME 9.4 fl (7.4-10.4); PLATELET COUNT 301 K/mm3 (130-400); RED BLOOD COUNT 3.49 M/mm3 (4.10-5.30); REDCELL DISTRIBUTION WIDTH-CV 18.3 % (11.5-14.5)
[2022-09-12 08:12] LABS: HEMATOCRIT 32.1 % (37.0-47.0)
[2022-09-12] MEDS ORDERED: ELIQUIS 5MG PO (08:25)
[2022-09-12 08:26] LABS: CALCIUM 9.3 mg/dL (8.4-10.2); CREATININE, serum 0.84 mg/dL (0.57-1.11); POTASSIUM 4.2 mmol/L (3.5-4.5)
[2022-09-12 08:27] LABS: INR 1.1 (0.8-3.0); PROTHROMBIN TIME 12.2 SECONDS (9.7-12.8)
[2022-09-12] MEDS ORDERED: LANOXIN 0.120.125 MG PO (08:27)
[2022-09-12 08:29] VITALS: BP 125/90; PULSE 90
[2022-09-12] MEDS ORDERED: PHENERGAN 25 TA25 MG PO (08:30)
--- NOTE | 2022-09-12 08:31 | NUR ---
PRE PROCEDURE ASSESSMENT COMPLETED IN [facility] BY THIS RN. SEE MERGE FOR ALL INTRAPROCEDURAL MEDICATION ADMINISTRATION TIMES/DOSAGES, VITAL INCLUDING ETC02, AND INTRA/POST PROCEDURE SEDATION ASSESSMENTS.
[2022-09-12] MEDS ORDERED: NITROSTAT0.4 MG/TAB SL (08:40)
[2022-09-12] MEDS ORDERED: PROTONIX 40MG T40 MG PO (08:41)
[2022-09-12] MEDS ORDERED: TYLENOL 325MG325 MG PO (08:41)
[2022-09-12] MEDS ORDERED: LASIX 40MG TABL40 MG PO (08:42)
[2022-09-12] MEDS ORDERED: FERRO-TIME325 MG PO (08:43)
[2022-09-12] MEDS ORDERED: MASON NATURAL1200 MG PO (08:44)
[2022-09-12] MEDS ORDERED: MAG-OX 400400 MG/TAB PO (08:45)
[2022-09-12] MEDS ORDERED: MELATONIN5 M1 SL (08:46)
[2022-09-12] MEDS ORDERED: ENTRESTO 24 MG1 EACH PO (08:47)
[2022-09-12] MEDS ORDERED: ZANAFLEX CAPSULE2 MG PO (08:48)
[2022-09-12] MEDS ORDERED: TOPAMAX 25MG25 M1 PO (08:49)
[2022-09-12] MEDS ORDERED: vitamin c PO (08:52)
--- NOTE | 2022-09-12 10:14 | NUR ---
Procedure cancelled per Dr Santos.INT removed by student nurse.Discharge instructions given to pt.Pt verbalizes understanding.
--- NOTE | 2022-09-12 10:30 | NUR ---
Michael,mini lab operator kersey department supervisor in to visit with patient.Per Michael he will call patient with date and time of procedure.Pt escorted out via ambulatory.
== END 2022-09-12 10:42 ==
LOC: COL.CAR 07:08
PROVIDERS: Internal Medicine Cardiovascular Disease
DX: I42.8 Other cardiomyopathies (principal); Z53.8 Procedure and treatment not carried out for other reasons; E78.00 Pure hypercholesterolemia, unspecified; I34.0 Nonrheumatic mitral (valve) insufficiency; I50.22 Chronic systolic (congestive) heart failure; J90 Pleural effusion, not elsewhere classified; I48.0 Paroxysmal atrial fibrillation; I45.4 Nonspecific intraventricular block; E83.42 Hypomagnesemia; Z95.810 Presence of automatic (implantable) cardiac defibrillator; I11.0 Hypertensive heart disease with heart failure; I44.7 Left bundle-branch block, unspecified
CPT/HCPCS: J7030; Q9967

== ENCOUNTER 2022-09-25 07:38 | Inpatient (IN) | payer MEDICAID ==
[2022-09-25] VITALS (11 sets, daily range): BP systolic 101–130; BP diastolic 55–101; PULSE 112–132; TEMP 9.7
[~2022-09-25] VITALS: Ht 172.7 cm; Wt 55.0 kg
[~2022-09-25 07:38] MED LIST changes: +ELIQUIS 5MG PO; +ENTRESTO 24 MG1 EACH PO; +FERRO-TIME325 MG PO; +LANOXIN 0.120.125 MG PO; +LASIX 40MG TABL40 MG PO; +MAG-OX 400400 MG/TAB PO; +MASON NATURAL1200 MG PO; +MELATONIN5 M1 SL; +NITROSTAT0.4 MG/TAB SL; +PROTONIX 40MG T40 MG PO; +TYLENOL 325MG325 MG PO; +VITAMINC500CH PO; +ZANAFLEX CAPSULE2 MG PO
[2022-09-25 08:27] LABS: BASO # 0.1 K/mm3 (0.0-0.2); EOS # 0.1 K/mm3 (0.0-0.7); EOS % 1.4 % (0.0-4.0); GRAN # 6.2 K/mm3 (1.4-6.5); GRAN % 71.7 % (42.2-75.2); HEMOGLOBIN 11.1 g/dl (12.5-16.0); LYMPH # 1.6 K/mm3 (1.2-3.4); LYMPH % 18.3 % (20.0-51.0); MEAN CELL VOLUME 90 fl (80.0-100.0); MEAN CORPUSCULAR HEMOGLOBIN 30 pg (27-31); MEAN CORPUSCULAR HGB CONC 33 g/dl (33.0-37.0); MEAN PLATELET VOLUME 9.1 fl (7.4-10.4); MONO # 0.6 K/mm3 (0.1-0.6); MONO % 7.3 % (1.7-9.3); PLATELET COUNT 302 K/mm3 (130-400); RED BLOOD COUNT 3.73 M/mm3 (4.10-5.30); REDCELL DISTRIBUTION WIDTH-CV 17.6 % (11.5-14.5)
[2022-09-25 08:28] LABS: HEMATOCRIT 33.5 % (37.0-47.0)
[2022-09-25 08:38] LABS: INR 1.1 (0.8-3.0); PROTHROMBIN TIME 12.6 SECONDS (9.7-12.8)
[2022-09-25 08:43] LABS: CALCIUM 8.8 mg/dL (8.4-10.2); CREATININE, serum 0.89 mg/dL (0.57-1.11); POTASSIUM 3.8 mmol/L (3.5-4.5)
[2022-09-25] MEDS ORDERED: ZYRTEC 10MG10 MG PO (09:06)
--- NOTE | 2022-09-25 09:36 | NUR ---
Initial visit; Patient thanked Inside Sales Consultant for looking in on her and offering prayer and God's blessings for a successful procedure with Dr. Santos and rapid and thorough recovery.
--- NOTE | 2022-09-25 09:44 | NUR ---
SEE MERGGE FOR ALL MEDICATIONS, INTERVENTIONS ANDVITALS
--- NOTE | 2022-09-25 10:26 | NUR ---
treatment given in cathlab unable to assess pt
--- NOTE | 2022-09-25 16:13 | NUR ---
PATIENT WILL NOT BE GETTING THORACENTESIS THIS EVENING. ULTRASOUND STATED THEY WILL COME GET PATIENT FOR THORA 09/26 AT 0700. PATIENT WILL NEED TO BE NPO AT MIDNIGHT. PATIENT UNDERSTANDS. VSS.
--- NOTE | 2022-09-25 17:14 | NUR ---
PATIENT IS NEW ADMIT FROM BUILDING SUPERINTENDENT TO THE MED FLOOR. AXOX4. VSS HAVE BEEN OVERALL STABLE, BUT IS TACHYCARDIC AND ON 5L OXYMASK DUE TO PLUERAL EFFUSION. PATIENT IS PLEASANT. DOES COMPLAIN OF SOME PAIN AT THE L. CHEST SITE. ICE IS PLACED ON AND OFF AT THE SITE PER PROTOCOL. PATIENT ACKNOWLEDGES THAT SHE WILL BE GETTING THORACENTESIS TOMORROW MORNING AND AND SECOND ATTEMPT AT PACEMAKER REPLACEMENT. BED ALARM ON. NPO AT MIDNIGHT.
[2022-09-26] VITALS (17 sets, daily range): BP systolic 58–128; BP diastolic 42–88; PULSE 63–115; TEMP 97.4–98
--- NOTE | 2022-09-26 05:45 | NUR ---
Pt around 0140 and 0440 had increased SOB, O2 satuation still above 94%. pt has a Rt plural effusion ans is set to have a thoracentisis this AM, was given fentanyl 12.5 X2 for #10 pain d/t the sob and that RLL. fentanyl decreased pain so that pt could rest comfortably. oretherwise pt rested in a low bed with nonskid socks, call light and personal items within reach.
[2022-09-26 07:04] LABS: BASO # 0.1 K/mm3 (0.0-0.2); EOS # 0.1 K/mm3 (0.0-0.7); EOS % 1.2 % (0.0-4.0); GRAN # 6.5 K/mm3 (1.4-6.5); GRAN % 74.8 % (42.2-75.2); LYMPH # 1.2 K/mm3 (1.2-3.4); LYMPH % 13.3 % (20.0-51.0); MEAN CELL VOLUME 91 fl (80.0-100.0); MEAN CORPUSCULAR HGB CONC 33 g/dl (33.0-37.0); MEAN PLATELET VOLUME 9.5 fl (7.4-10.4); MONO # 0.8 K/mm3 (0.1-0.6); MONO % 9.2 % (1.7-9.3); PLATELET COUNT 246 K/mm3 (130-400); RED BLOOD COUNT 3.06 M/mm3 (4.10-5.30); REDCELL DISTRIBUTION WIDTH-CV 17.5 % (11.5-14.5)
[2022-09-26 07:09] LABS: HEMATOCRIT 27.7 % (37.0-47.0); HEMOGLOBIN 9.1 g/dl (12.5-16.0); MEAN CORPUSCULAR HEMOGLOBIN 30 pg (27-31)
[2022-09-26 07:13] LABS: CALCIUM 8.6 mg/dL (8.4-10.2); CREATININE, serum 0.8 mg/dL (0.57-1.11); INR 1.2 (0.8-3.0); POTASSIUM 3.5 mmol/L (3.5-4.5); PROTHROMBIN TIME 13.6 SECONDS (9.7-12.8)
[2022-09-26 09:01] LABS: PLEURAL FLUID RBC 0 /mm3 (0-0); PLEURAL FLUID WBC 133 /mm3
[2022-09-26 09:04] LABS: PLEURAL FLUID APPEARANCE CLEAR; PLEURAL FLUID COLOR YELLOW
--- NOTE | 2022-09-26 09:19 | NUR ---
Follow-up visit; Patient thanked Contracts Officer for visiting her again today. Patient exhibiting fear and concern regarding her health issues following yesterday's "Procedure." Contracts Officer attempted to help her recall her sofia and offered prayer and God's blessings along with reassurance the Physicians and Staff here will take good care of her. Johanny seemed to appear somewhat comforted.
--- NOTE | 2022-09-26 09:21 | NUR ---
Pt assessment complete. Pt is sitting up in bed upon entry, she is A/O x4. Pt is SOB, appears to have pauses in breathing d/t pain. PRN pain medication given, for pain 04/22 to pacer site. Site CDI. LUE in sling. Bandaid to R back from thoracentesis CDI. OM in place, states she feels her breathing is slightly better after procedure. POC discussed with patient. No needs at this time.
--- NOTE | 2022-09-26 11:30 | NUR ---
SW met with the patient to discuss discharge plan. The patient lives in [place] with her life partner, Hoang Lopez (ph#[phone]). She reports independence with ADLs and does not have any DME. The patient's primary care provider is Debra Estevez APRN at [facility] and she obtains her medications from [facility]. The patient does not have a DPOA-HC, but she was interested in obtaining a form. EDUIN provided. The patient states that she is not and has one child: Diomedes Rod (ph#[phone]). The patient plans to return home with her partner upon discharge. The patient is currently on oxygen. The patient confirms that she does not have home oxygen. *Discharge plan: home with life partner*
--- NOTE | 2022-09-26 19:11 | NUR ---
Pt recovering from lab nurse, site to R chest has small eraser sized blood stain to dressing RUE in sling ice to chest. L chest dressing CDI. On 8L O2 via OM. Discussed POC with patient who verbalizes understanding.
[2022-09-27] VITALS (12 sets, daily range): BP systolic 55–104; BP diastolic 35–79; PULSE 83–96; TEMP 97.3–97.5
--- NOTE | 2022-09-27 07:40 | NUR ---
Pt was resting comfortably upon arrival on shift. pt complained of #10 pain when passing night time pills @2145 gave norco at that time for pain. pt then was at rest until next vitals @2358 and BP went from 110/76@1999 to 58/42 at this time patient was talking with a complaint of slight dizziness and nausea. there was a miss communication on who to properly contact. paged hurtig X2 when not recieved call back called [facility] and connected with Dr. Knapp and recieved orders to start NS @ 200ml/hr until SBP>80 then decrease to 100ml/hr, once started at 0230 with BP 61/35, at 0330 was 63/49, at 0430 78/52, at 0500 81/55 and pts fluids decreased to 100ml/hr at this time. during this time when fluid was started education was given to pt to call because of past plural effusion and hx of CHF to call if pt felt signs of fluid overload and what those signs are. last check was done at 0600 and bp was @ 83/59 and resting without distress.
[2022-09-27 08:37] LABS: BASO # 0.1 K/mm3 (0.0-0.2); BASO % 0.8 % (0.0-2.0); EOS # 0.2 K/mm3 (0.0-0.7); EOS % 2.7 % (0.0-4.0); GRAN # 5.4 K/mm3 (1.4-6.5); GRAN % 69.6 % (42.2-75.2); LYMPH # 1.4 K/mm3 (1.2-3.4); LYMPH % 18.2 % (20.0-51.0); MEAN CELL VOLUME 90 fl (80.0-100.0); MEAN CORPUSCULAR HGB CONC 33 g/dl (33.0-37.0); MEAN PLATELET VOLUME 9.3 fl (7.4-10.4); MONO # 0.7 K/mm3 (0.1-0.6); MONO % 8.4 % (1.7-9.3); PLATELET COUNT 183 K/mm3 (130-400); RED BLOOD COUNT 2.82 M/mm3 (4.10-5.30); REDCELL DISTRIBUTION WIDTH-CV 17.4 % (11.5-14.5)
[2022-09-27 08:41] LABS: HEMATOCRIT 25.5 % (37.0-47.0); HEMOGLOBIN 8.5 g/dl (12.5-16.0); MEAN CORPUSCULAR HEMOGLOBIN 30 pg (27-31)
[2022-09-27 08:55] LABS: CALCIUM 7.8 mg/dL (8.4-10.2); CREATININE, serum 1.06 mg/dL (0.57-1.11); POTASSIUM 4.4 mmol/L (3.5-4.5)
[2022-09-27] MEDS ORDERED: ALDACTONE 25MG25 M1 PO (12:05)
[2022-09-27] MEDS ORDERED: LASIX 20MG TABL20 MG PO (12:05)
[2022-09-27] MEDS ORDERED: CEPHALEXIN500 M1 PO (12:06)
[2022-09-27] MEDS ORDERED: ULTRAM 50MG TAB50 MG PO (12:08)
== END 2022-09-27 16:35 | disposition home or self-care (01) | DRG 227 ==
LOC: MEDICAL 07:38 → COL.CAR 07:38 → MEDICAL 12:28 → COL.CAR 09-26 10:39 → MEDICAL 09-26 10:40
PROVIDERS: ADMIT Internal Medicine Cardiovascular Disease
PROC: 0JWT0PZ Revision of Cardiac Rhythm Related Device in Trunk Subcutaneous Tissue and Fascia, Open Approach (ICD-10-PCS; 2022-09-25)
PROC: 0W9930Z Drainage of Right Pleural Cavity with Drainage Device, Percutaneous Approach (ICD-10-PCS; principal; 2022-09-26)
PROC: 0JH609Z Insertion of Cardiac Resynchronization Defibrillator Pulse Generator into Chest Subcutaneous Tissue and Fascia, Open Approach (ICD-10-PCS; 2022-09-27)
PROC: 02HK3KZ Insertion of Defibrillator Lead into Right Ventricle, Percutaneous Approach (ICD-10-PCS; 2022-09-27)
PROC: 0JPT0PZ Removal of Cardiac Rhythm Related Device from Trunk Subcutaneous Tissue and Fascia, Open Approach (ICD-10-PCS; 2022-09-27)
PROC: 02PA3MZ Removal of Cardiac Lead from Heart, Percutaneous Approach (ICD-10-PCS; 2022-09-27)
PROC: 02HL3KZ Insertion of Defibrillator Lead into Left Ventricle, Percutaneous Approach (ICD-10-PCS; 2022-09-27)
DX: I11.0 Hypertensive heart disease with heart failure (principal); J90 Pleural effusion, not elsewhere classified; I82.B12 Acute embolism and thrombosis of left subclavian vein; I47.1 Supraventricular tachycardia; I50.22 Chronic systolic (congestive) heart failure; I42.8 Other cardiomyopathies; E87.70 Fluid overload, unspecified; I44.7 Left bundle-branch block, unspecified; I95.9 Hypotension, unspecified; K21.9 Gastro-esophageal reflux disease without esophagitis; D64.9 Anemia, unspecified; G40.909 Epilepsy, unspecified, not intractable, without status epilepticus; G43.909 Migraine, unspecified, not intractable, without status migrainosus; F32.A Depression, unspecified; F41.9 Anxiety disorder, unspecified; F43.10 Post-traumatic stress disorder, unspecified; M19.90 Unspecified osteoarthritis, unspecified site; J44.9 Chronic obstructive pulmonary disease, unspecified; I48.91 Unspecified atrial fibrillation; E78.5 Hyperlipidemia, unspecified; I25.10 Atherosclerotic heart disease of native coronary artery without angina pectoris; I34.0 Nonrheumatic mitral (valve) insufficiency; I25.2 Old myocardial infarction; Z95.0 Presence of cardiac pacemaker
CPT/HCPCS: OP; C1751; C1769; C1882; C1894; C1900; G0378; J0690; J1885; J1940; J2250; J2704; J3010; J7030; Q9967

== ENCOUNTER 2022-10-07 13:15 | Inpatient (IN) | payer MEDICAID ==
[~2022-10-07] VITALS: Ht 172.7 cm; Wt 57.4 kg
[~2022-10-07 13:15] MED LIST changes: +LASIX 20MG TABL20 MG PO; +ULTRAM 50MG TAB50 MG PO; +ZYRTEC 10MG10 MG PO
[2022-10-07 16:08] LABS: ALBUMIN 3.1 gm/dL (3.5-5.0); BILIRUBIN,TOTAL 0.9 mg/dL (0.2-1.2); CALCIUM 8.8 mg/dL (8.4-10.2); CREATININE, serum 0.76 mg/dL (0.57-1.11); POTASSIUM 4.5 mmol/L (3.5-4.5); TOTAL PROTEIN 7.7 gm/dL (6.2-8.1)
[2022-10-07 16:13] LABS: TROPONIN-I 0.018 ng/mL (0.00-0.033)
[2022-10-07 17:11] LABS: BASO # 0.1 K/mm3 (0.0-0.2); BASO % 0.9 % (0.0-2.0); EOS % 0.1 % (0.0-4.0); GRAN # 5.5 K/mm3 (1.4-6.5); LYMPH # 1.3 K/mm3 (1.2-3.4); LYMPH % 16.6 % (20.0-51.0); MEAN CELL VOLUME 85 fl (80.0-100.0); MEAN CORPUSCULAR HGB CONC 33 g/dl (33.0-37.0); MONO # 0.8 K/mm3 (0.1-0.6); MONO % 10.1 % (1.7-9.3); PLATELET COUNT 317 K/mm3 (130-400); RED BLOOD COUNT 3.47 M/mm3 (4.10-5.30); REDCELL DISTRIBUTION WIDTH-CV 17.7 % (11.5-14.5)
[2022-10-07 17:12] LABS: HEMATOCRIT 29.4 % (37.0-47.0); HEMOGLOBIN 9.6 g/dl (12.5-16.0); MEAN CORPUSCULAR HEMOGLOBIN 28 pg (27-31)
[2022-10-07 20:19] VITALS: BP 142/97; PULSE 117; TEMP 97.5
--- NOTE | 2022-10-08 00:04 | NUR ---
PATIENT ASSESSED AND GIVEN NIGHTLY MEDICATIONS. AOX4 AND PLEASANT TO SPEAK WITH. ADMITTED TO ROOM 351 FROM THE EMERGENCY DEPARTMENT. HOME MEDICATIONS RECONCILED. 3X INCISIONS FROM ICD PLACEMENT TO UPPER CHEST WITH STERI-STRIPS PRESENT ON ICD SITE. AHA DIET WITH 1.5L FLUID REST. WILL KEEP NPO AT MIDNIGHT FOR POSSIBLE THORA TODAY. CT CHEST- NEG PE'S, BILAT PLEURAL EFFUSIONS, BIBASILAR ATELECTASIS, AND ASCITES ON THE LIVER. USING THE COMMODE TO URINATE. 2+ BLE EDEMA NOTED. V PACED ON TELE. SCD'S ON PATIENT. ON 2L VIA NC. COMPLAINING OF CHEST TIGHTNESS AND BACK PAIN, GIVEN MORPHINE 1X. D DIMER- 2530. BNP- 7588. NEG HOMANS SIGN UPON ASSESSMENT. HOLDING ELIQUIS FOR POSSIBLE THORA. BED IN LOWEST POSITION. CALL LIGHT IN REACH.
[2022-10-08 00:15] VITALS: BP 136/85; PULSE 117; TEMP 97.5
[2022-10-08 04:27] VITALS: BP 116/76; PULSE 108; TEMP 97.8
[2022-10-08 07:11] LABS: BASO # 0.1 K/mm3 (0.0-0.2); BASO % 1.1 % (0.0-2.0); EOS # 0.1 K/mm3 (0.0-0.7); EOS % 1.2 % (0.0-4.0); GRAN # 5.9 K/mm3 (1.4-6.5); GRAN % 72.5 % (42.2-75.2); LYMPH # 1.3 K/mm3 (1.2-3.4); LYMPH % 16.4 % (20.0-51.0); MEAN CELL VOLUME 85 fl (80.0-100.0); MEAN CORPUSCULAR HGB CONC 33 g/dl (33.0-37.0); MEAN PLATELET VOLUME 9.5 fl (7.4-10.4); MONO # 0.7 K/mm3 (0.1-0.6); MONO % 8.6 % (1.7-9.3); PLATELET COUNT 295 K/mm3 (130-400); RED BLOOD COUNT 3.12 M/mm3 (4.10-5.30); REDCELL DISTRIBUTION WIDTH-CV 17.7 % (11.5-14.5)
[2022-10-08 07:19] LABS: HEMATOCRIT 26.4 % (37.0-47.0); HEMOGLOBIN 8.8 g/dl (12.5-16.0); MEAN CORPUSCULAR HEMOGLOBIN 28 pg (27-31)
[2022-10-08 07:25] LABS: CALCIUM 8.6 mg/dL (8.4-10.2); CREATININE, serum 0.79 mg/dL (0.57-1.11); MAGNESIUM 1.4 mg/dL (1.6-2.6); POTASSIUM 4.1 mmol/L (3.5-4.5)
[2022-10-08 07:50] VITALS: BP 121/85; PULSE 116; TEMP 97.5
--- NOTE | 2022-10-08 09:53 | NUR ---
Patient alert and oriented, sitting up in bed. Complaining of chest tenderness. PRN medications given, effective. Expiratory wheezing noted, 2L oxygen in place. Pt also complains of nausea, PRN given. Bed in lowest position, call light within reach.
--- NOTE | 2022-10-08 11:03 | NUR ---
EDUIN met with the patient to discuss discharge plan. The patient lives in [place] with her life partner, Hoang Lopez (ph#[phone]). She reports independence with ADLs and does not have any DME. The patient's primary care provider is Debra Estevez APRN at [facility] and she obtains her medications from [facility]. The patient does not have a DPOA-HC, but she was interested in obtaining a form. EDUIN provided. The patient states that she is not and has one child: Diomedes ([phone]). EDUIN informed her how Diomedes is her legal next of kin. The patient verbalized understanding. The patient plans to return home with her life partner upon discharge. The patient is currently requiring oxygen. She confirms that she does not have home oxygen. *Discharge plan: home with life partner. May need oxygen set up upon discharge*
[2022-10-08 11:11] VITALS: BP 115/82; PULSE 116; TEMP 97.6
[2022-10-08 11:26] LABS: INR 1.2 (0.8-3.0); PROTHROMBIN TIME 13.2 SECONDS (9.7-12.8)
--- NOTE | 2022-10-08 13:57 | NUR ---
Initial visit: Track Layer stopped by room on rounds. Pt was resting and content. Pt has no needs right now. Track Layer will follow up as needed.
[2022-10-08 16:06] VITALS: BP 99/73; PULSE 115; TEMP 97.4
[2022-10-08 19:53] VITALS: BP 123/76; PULSE 112; TEMP 97.6
--- NOTE | 2022-10-08 22:39 | NUR ---
PATIENT ASSESSED AND MEDICATIONS GIVEN. SHE IS AOX4 AND PLEASANT TO SPEAK WITH. V PACED ON TELEMETRY. NPO AT MIDNIGHT, LOW NA DIET AND 1500ML FLUID REST. RIGHT THORACENTESIS PLANNED FOR TOMORROW, POSSIBLE LEFT THORA IN THE NEAR FUTURE. GIVEN MORPHINE 1X FOR BACK PAIN. SCD'S ON. ON 1L DOWN FROM 2L, RA IS BASELINE. SHE IS STILL TACHYCARDIC ON TELE. CALL LIGHT IN REACH. BED IN LOWEST POSITION.
[2022-10-09 00:26] VITALS: BP 91/61; PULSE 100; TEMP 97.4
[2022-10-09 04:44] VITALS: BP 102/68; PULSE 98; TEMP 97.9
[2022-10-09 06:56] LABS: BASO # 0.1 K/mm3 (0.0-0.2); BASO % 1.1 % (0.0-2.0); EOS # 0.2 K/mm3 (0.0-0.7); EOS % 3.3 % (0.0-4.0); GRAN # 4.1 K/mm3 (1.4-6.5); GRAN % 64.8 % (42.2-75.2); HEMATOCRIT 26.5 % (37.0-47.0); HEMOGLOBIN 8.6 g/dl (12.5-16.0); LYMPH # 1.4 K/mm3 (1.2-3.4); LYMPH % 21.6 % (20.0-51.0); MEAN CELL VOLUME 84 fl (80.0-100.0); MEAN CORPUSCULAR HEMOGLOBIN 27 pg (27-31); MEAN CORPUSCULAR HGB CONC 33 g/dl (33.0-37.0); MEAN PLATELET VOLUME 9.6 fl (7.4-10.4); MONO # 0.6 K/mm3 (0.1-0.6); MONO % 8.9 % (1.7-9.3); PLATELET COUNT 242 K/mm3 (130-400); RED BLOOD COUNT 3.14 M/mm3 (4.10-5.30); REDCELL DISTRIBUTION WIDTH-CV 17.8 % (11.5-14.5)
[2022-10-09 07:02] LABS: CALCIUM 8.4 mg/dL (8.4-10.2); CREATININE, serum 1.27 mg/dL (0.57-1.11); POTASSIUM 4.5 mmol/L (3.5-4.5)
[2022-10-09 07:19] VITALS: BP 100/65; PULSE 98; TEMP 97.8
[2022-10-09 09:00] VITALS: BP 107/80; PULSE 107; TEMP 97.8
[2022-10-09 10:00] VITALS: BP 104/74; PULSE 108; TEMP 97.4
[2022-10-09 10:25] LABS: PLEURAL FLUID RBC 2000 /mm3 (0-0); PLEURAL FLUID WBC 183 /mm3
[2022-10-09 10:31] LABS: PLEURAL FLUID APPEARANCE HAZY; PLEURAL FLUID COLOR YELLOW
--- NOTE | 2022-10-09 10:51 | NUR ---
Contact Marixa Edmond NP to verify restart Eloquis and notify pain not controlled.
[2022-10-09] MEDS ORDERED: LASIX 40MG TABL40 MG PO (11:21)
[2022-10-09] MEDS ORDERED: PRENATAL TABLET PO (11:24)
--- NOTE | 2022-10-09 16:30 | NUR ---
Notify Mike Kauffman that pt has not rec'd home O2 yet. [facility] contacts EDUIN Kauffman. All SW gone for the day. Verified no orders/ppw sent to [facility] to order O2. Notify Dr. Kim to discontinue d/c order. Pt and notified of no O2. Pt agrees to stay overnight to await orders/delivery of O2.
--- NOTE | 2022-10-09 17:30 | NUR ---
Pt calls, notifies this RN that O2 has been delivered and that is still in town and willing to p/u pt. Notify araceli sarmiento and Dr. Kim. New d/c order placed.
[2022-10-09 17:37] VITALS: BP 108/72; PULSE 91; TEMP 97.7
--- NOTE | 2022-10-09 18:30 | NUR ---
Discharge instructions have been discussed pt. Pt reports understanding, d/c ppw signed. IV to LAC d/c, complete/intact. Pt escorted from facility via WC. All belongings, O2 concentrator and included equipment sent with pt.
== END 2022-10-09 21:00 | disposition home or self-care (01) | DRG 291 ==
LOC: COL.ER 13:15 → MEDICAL 18:13
PROVIDERS: Internal Medicine Pulmonary Disease; Personal Emergency Response Attendant; Physician Assistant; Student in an Organized Health Care Education/Training Program; ADMIT Internal Medicine
PROC: 0W990ZZ Drainage of Right Pleural Cavity, Open Approach (ICD-10-PCS; principal; 2022-10-09)
DX: I11.0 Hypertensive heart disease with heart failure (principal); I50.23 Acute on chronic systolic (congestive) heart failure; J96.01 Acute respiratory failure with hypoxia; J90 Pleural effusion, not elsewhere classified; R18.8 Other ascites; J98.11 Atelectasis; I42.8 Other cardiomyopathies; J44.9 Chronic obstructive pulmonary disease, unspecified; R00.0 Tachycardia, unspecified; G40.909 Epilepsy, unspecified, not intractable, without status epilepticus; K75.81 Nonalcoholic steatohepatitis (NASH); F17.210 Nicotine dependence, cigarettes, uncomplicated; Z20.818 Contact with and (suspected) exposure to other bacterial communicable diseases; Z95.818 Presence of other cardiac implants and grafts; Z95.0 Presence of cardiac pacemaker; Z86.73 Personal history of transient ischemic attack (TIA), and cerebral infarction without residual deficits; Z79.01 Long term (current) use of anticoagulants; Z79.891 Long term (current) use of opiate analgesic
CPT/HCPCS: J1650; J1940; J2270; J2405; J3475; J7030; Q9967

== ENCOUNTER 2023-08-14 13:59 | Emergency (ER) | payer MEDICAID ==
[~2023-08-14] VITALS: Ht 172.7 cm; Wt 50.0 kg
[~2023-08-14 13:59] MED LIST changes: +PRENATAL TABLET PO
[2023-08-14 14:13] VITALS: TEMP 96.9
[2023-08-14 16:02] LABS: ALBUMIN 3.6 gm/dL (3.5-5.0); BILIRUBIN,TOTAL 0.2 mg/dL (0.2-1.2); CALCIUM 9.1 mg/dL (8.4-10.2); CREATININE, serum 1.63 mg/dL (0.57-1.11); POTASSIUM 5.2 mmol/L (3.5-4.5); TOTAL PROTEIN 7.5 gm/dL (6.2-8.1); URIC ACID 11.4 mg/dL (2.6-6.0)
[2023-08-14 16:23] LABS: BASO # 0.1 K/mm3 (0.0-0.2); BASO % 0.4 % (0.0-2.0); EOS # 0.3 K/mm3 (0.0-0.7); EOS % 2.3 % (0.0-4.0); GRAN # 9.9 K/mm3 (1.4-6.5); GRAN % 73.4 % (42.2-75.2); LYMPH # 2.3 K/mm3 (1.2-3.4); LYMPH % 17.1 % (20.0-51.0); MEAN CELL VOLUME 78 fl (80.0-100.0); MEAN CORPUSCULAR HGB CONC 31 g/dl (33.0-37.0); MONO # 0.8 K/mm3 (0.1-0.6); MONO % 5.6 % (1.7-9.3); PLATELET COUNT 247 K/mm3 (130-400); RED BLOOD COUNT 3.75 M/mm3 (4.10-5.30)
[2023-08-14 16:30] LABS: HEMATOCRIT 29.4 % (37.0-47.0); MEAN CORPUSCULAR HEMOGLOBIN 24 pg (27-31)
[2023-08-14] MEDS ORDERED: predniSONE 20 MG TAB PO ONE (16:30)
[2023-08-14] MEDS ORDERED: NS 500 ML IV ONE (16:30)
[2023-08-14] MEDS ORDERED: PREDNISONE20 MG PO (17:27)
[2023-08-14] MEDS ORDERED: Acetaminophen 500 MG TAB PO ONE (17:30)
[2023-08-14 17:42] VITALS: BP 121/70; PULSE 84
== END 2023-08-14 17:42 | disposition home or self-care (01) ==
LOC: COL.ER 13:59
PROVIDERS: Emergency Medicine; Personal Emergency Response Attendant
DX: S09.90XA Unspecified injury of head, initial encounter (principal); S00.83XA Contusion of other part of head, initial encounter; D64.9 Anemia, unspecified; M10.9 Gout, unspecified; E87.1 Hypo-osmolality and hyponatremia; M21.611 Bunion of right foot; M21.612 Bunion of left foot; R79.89 Other specified abnormal findings of blood chemistry; F17.210 Nicotine dependence, cigarettes, uncomplicated; Z79.01 Long term (current) use of anticoagulants; W22.8XXA Striking against or struck by other objects, initial encounter; W18.30XA Fall on same level, unspecified, initial encounter
CPT/HCPCS: J7040; J7512